=== PATIENT | female | born 1965 | race Caucasian/White ===

== ENCOUNTER → 2017-01-20 | Outpatient (CLI) | payer BC | LOC: GMA 19:23 | PROVIDERS: ATTEND Physician Assistant | DX: N30.00 Acute cystitis without hematuria (principal) ==

== ENCOUNTER → 2017-03-23 | Outpatient (CLI) | payer BC ==
--- NOTE | 2017-03-23 15:21 | RAD ---
EXAM DESCRIPTION: Shoulder,Right 2 or More Views CLINICAL HISTORY: 51 years Female, PAIN COMPARISON: None. FINDINGS: 4 views of the right shoulder show no acute fracture or malalignment. The right AC joint is unremarkable. There is no soft tissue abnormality. The joint spaces are well-maintained and there is no focal bone lesion. IMPRESSION: Negative exam. Electronically signed by: Ian Sandy MD 03/23/2017 3:20 PM [facility] [[email or web address]]
== END | disposition home or self-care (01) ==
LOC: RAD 09:00
PROVIDERS: ATTEND Orthopaedic Surgery
DX: M25.511 Pain in right shoulder (principal)

== ENCOUNTER → 2019-04-10 | Outpatient (CLI) | payer BC ==
--- NOTE | 2019-04-11 21:02 | MAM ---
EXAM DESCRIPTION: 3D Screening BILATERAL : Digital Mammography. CLINICAL HISTORY: 53 years Female ANNUAL SCREENING . No complaints. No personal or family history of breast cancer. Menarche age 14. Childbirth age 21. Menopause age 49. No HRT. Lifetime risk of developing breast cancer (Tyrer-Cuzick model)(%): 7.8. COMPARISON: 2-D digital screening bilateral mammography July 2014.. No prior reports available. TECHNIQUE: Bilateral CC and MLO projection full-field images, digital tomosynthesis mammographic technique. Bilateral digital 2-D full-field MLO images. CAD not available for tomosynthesis or 2-D images. FINDINGS: The breast parenchymal density pattern is: Scattered areas of fibroglandular density. No skin thickening or nipple retraction. Bilateral solitary microcalcifications. No new focal, stellate mass or density, focal asymmetry , and no suspicious microcalcifications bilaterally. Stable mammograms compared to prior study. Taking into account, differences in mammographic technique. IMPRESSION: Benign exam. BIRAD CATEGORY: 2 BENIGN FINDINGS. RECOMMENDATIONS: FOLLOW UP: Routine digital bilateral mammographic screening, one year interval from April 2018. Written communication explaining the IMPRESSION and follow-up, will be mailed to the patient and referring health care provider. According to the [employer], yearly mammograms are recommended starting at age 40 and continuing as long as a woman is in good health. Any breast change noted on a breast self-exam should be reported promptly to the patient's healthcare provider. Breast MRI is recommended for women with an approximately 20-25% or greater lifetime risk of breast cancer, including women with a strong family history of breast or ovarian cancer and women who have been treated for Hodgkin's disease. A negative mammographic report should not delay tissue diagnosis in patients with significant clinical history or physical findings. Extremely dense breast tissue limits the sensitivity of digital mammography. Electronically signed by: Tony Collins MD 04/11/2019 9:01 PM [employer]
== END ==
LOC: MAMMO 15:25
PROVIDERS: ATTEND Obstetrics & Gynecology
DX: Z12.31 Encounter for screening mammogram for malignant neoplasm of breast (principal)

== ENCOUNTER → 2019-08-15 | Outpatient (CLI) | payer BC | LOC: GMAJ 10:40 | PROVIDERS: ATTEND Family Medicine | DX: E89.0 Postprocedural hypothyroidism (principal); E55.9 Vitamin D deficiency, unspecified ==

== ENCOUNTER → 2019-10-17 | Outpatient (CLI) | payer BC | LOC: GMAJ 14:37 | PROVIDERS: ATTEND Family Medicine | DX: R63.5 Abnormal weight gain (principal); C73 Malignant neoplasm of thyroid gland ==

== ENCOUNTER → 2020-01-02 | Outpatient (CLI) | payer BC | LOC: GMAJ 10:41 | PROVIDERS: ATTEND Family Medicine | DX: C73 Malignant neoplasm of thyroid gland (principal); R73.9 Hyperglycemia, unspecified; E55.9 Vitamin D deficiency, unspecified; Z79.899 Other long term (current) drug therapy ==

== ENCOUNTER 2020-02-09 05:26 | Day surgery (SDC) | payer BC ==
[2020-02-09] MEDS ORDERED: LIDOCAINE 1% 10 ML VIAL INJ ONE (05:27)
[2020-02-09] MEDS ORDERED: PROPOFOL 200 MG/20 ML VIAL IV ONE (05:27)
[2020-02-09] MEDS ORDERED: LACTATED RINGERS 1,000 ML ONE (06:52)
[2020-02-09] MEDS ORDERED: SODIUM CHLORIDE 0.9% (FLUSH) 10 ML SYG ONE (06:53)
[2020-02-09 09:01] VITALS: O2SAT 98
[2020-02-09 09:38] VITALS: BP 134/82; TEMP 96.8
--- NOTE | 2020-02-09 10:56 | OP ---
DATE OF PROCEDURE: 02/09/20 PREOPERATIVE DIAGNOSIS: 1. Screening colonoscopy. POSTOPERATIVE DIAGNOSIS: 1. Normal colon. PROCEDURE: 1. Colonoscopy. SURGEON: Sheldon Fountain MD ANESTHESIA: General, Timothy Pastor CRNA. INDICATION: As stated. PROCEDURE: General anesthesia was induced in the lateral position. Digital rectal exam was normal. The colonoscope was inserted with minimal difficulty all the way to the cecum as identified by landmarks. Upon withdrawal, all mucosal surfaces appeared normal. No polyps were seen. Retroflexion was also normal with small internal hemorrhoids. She tolerated the procedure and had a completely normal scope. Routine followup in 10 years without any new problems. #[id number] cc: Sheldon Lara MD [facility]
== END 2020-02-09 09:40 | disposition home or self-care (01) ==
LOC: AMB 05:26
PROVIDERS: ATTEND Surgery
DX: Z12.11 Encounter for screening for malignant neoplasm of colon (principal); K64.8 Other hemorrhoids; M17.0 Bilateral primary osteoarthritis of knee; E89.0 Postprocedural hypothyroidism; Z88.0 Allergy status to penicillin; Z90.710 Acquired absence of both cervix and uterus; Z85.850 Personal history of malignant neoplasm of thyroid; Z79.899 Other long term (current) drug therapy
CPT/HCPCS: 00812; 45378; A4216; J3490; J7120

== ENCOUNTER → 2020-02-21 | Outpatient (CLI) | payer BC | LOC: GMAJ 11:07 | PROVIDERS: ATTEND Family Medicine | DX: C73 Malignant neoplasm of thyroid gland (principal); E55.9 Vitamin D deficiency, unspecified ==

== ENCOUNTER → 2020-05-02 | Outpatient (CLI) | payer BC | LOC: GMAJ 10:38 | PROVIDERS: ATTEND Family Medicine | DX: E03.8 Other specified hypothyroidism (principal) ==